=== PATIENT | male | born 1990 | race Caucasian/White ===

== ENCOUNTER 2017-02-28 16:04 | Emergency (ER) | payer MEDICAID ==
[2017-02-28] MEDS ORDERED: IBUPROFEN 600 MG TAB PO ONE (16:25)
--- NOTE | 2017-02-28 16:29 | EDPHY ---
H & P Stated Complaint: slipped hiking hyperextended l knee heard a pop HPI/ROS: CHIEF COMPLAINT: Left knee pain HISTORY OF PRESENT ILLNESS: Patient was hiking today when he was going downhill , and his left foot state a behind him when he took a step down, twisting his knee. He says he felt a sudden onset of pain in the left knee. This was primarily anteriorly over the patella. Mild pain at 1st. He continued to hike throughout the day. Throughout his hiking noticed increased pain and swelling of the knee. It is now moderate to severe pain. Unable to walk due to. He can stand but not ambulate. No injury elsewhere. No hip pain. No ankle pain. No foot pain. No numbness or tingling. He did not fall or strike his head no use of blood thinners. He is not taking any medications. PRIOR ORTHO INJURIES: None ESTABLISHED ORTHOPEDIST: none REVIEW OF SYSTEMS: Ten systems reviewed and are negative unless otherwise noted in the HPI EXAMINATION General Appearance: Alert, no distress Cardiovascular: Pulses normal throughout. Symmetric radial pulses are 2+. Brisk cap refill Neurological: A&O, sensory symmetric, strength symmetric Skin: Warm and dry, no rash. No petechia purpura. Extremities: Left lower extremity: Tenderness to palpation of the left knee on the anterior, medial and lateral joint line. There is mild effusion noted. No erythema. No lacerations or abrasions. Range of motion is intact but painful. There is no instability of the knee. There is pain with posterior drawer but no instability. No laxity of the lateral or medial collateral ligaments. Psychiatric: Mood and affect normal DIFFERENTIAL DIAGNOSES: Including but not limited to knee sprain, knee fracture, fracture dislocation, strain, hematoma, effusion MDM: 4:25 p.m. Acute left knee pain while hiking today. He has pain over the anterior and posterior joint. He does have some edema about the knee. He is neuro intact distally. He is unable to bear weight due to pain. X-ray has been ordered. Ibuprofen has been ordered as he is driving himself home. 5:00 p.m. No acute findings on x-ray as interpreted by me. There is mild effusion on clinical examination. He is neurovascular intact. There is no significant instability of the knee. No laceration or abrasion. He will be placed and an Mich wrap and provided crutches. He is to follow up with orthopedist for definitive care. Return to ER for worsening symptoms, increasing swelling. Comfortable with this plan and discharged home stable condition. ED Precautions: Worsening pain. Erythema, edema, cyanosis, pallor, paresthesia or anesthesia. SUPERVISION: This patient was independently evaluated without direct examination by the attending physician. Case was discussed with attending physician. Source: Patient Exam Limitations: No limitations - Personal History Current Tetanus/Diphtheria Vaccine: Yes - Medical/Surgical History Hx Asthma: No Hx Chronic Respiratory Disease: No Hx Diabetes: No Hx Cardiac Disease: No Hx Renal Disease: No Hx Cirrhosis: No Hx Alcoholism: No Hx HIV/AIDS: No Hx Splenectomy or Spleen Trauma: No Other PMH: DENIES - Social History Smoking Status: Current every day smoker Constitutional: Initial Vital Signs Temperature (C) 98.1 F 02/28/17 16:07 Heart Rate 92 02/28/17 16:07 Respiratory Rate 17 02/28/17 16:07 Blood Pressure 106/76 02/28/17 16:07 O2 Sat (%) 94 02/28/17 16:07 O2 Delivery Mode Room Air Allergies/Adverse Reactions: No Known Allergies Allergy (Verified 02/28/17 16:07) Home Medications: Medication Instructions Recorded Hydrocodone/APAP 5/325 [Carey 1 - 2 tab PO Q4H PRN #10 tab 02/28/17 5/325 (*)] Medical Decision Making - Data Points Medications Given: Discontinued Medications Ibuprofen (Motrin) 600 mg PO EDNOW ONE Stop: 02/28/17 16:26 Last Admin: 02/28/17 16:27 Dose: 600 mg Departure - Departure Disposition: Home, Routine, Self-Care Clinical Impression: Left knee sprain Qualifiers: Encounter type: initial encounter Involved ligament of knee: unspecified ligament Qualified Code(s): S83.92XA - Sprain of unspecified site of left knee, initial encounter Condition: Good Instructions: Knee Sprain (ED) Additional Instructions: Weightbearing as tolerated. Keep the injured extremity Mich wrap and elevated. Apply ice liberally as tolerated. Follow up with Orthopedics for definitive care. Return to ER for worsening pain or swelling, numbness or tingling, redness about the joint Referrals: Robel Terry MD [Medical Doctor] - As per Instructions Prescriptions: Hydrocodone/APAP 5/325 [Carey 5/325 (*)] 1 - 2 tab PO Q4H PRN #10 tab PRN Reason: Pain, Moderate
[2017-02-28 17:24] VITALS: BP 100/71; PULSE 87; RESP 18; TEMP 98.2; O2SAT 93
== END 2017-02-28 17:24 | disposition home or self-care (01) ==
DX: S83.92XA Sprain of unspecified site of left knee, initial encounter (principal); F17.200 Nicotine dependence, unspecified, uncomplicated; X58.XXXA Exposure to other specified factors, initial encounter; Y92.828 Other wilderness area as the place of occurrence of the external cause; Y93.01 Activity, walking, marching and hiking

== ENCOUNTER 2018-07-02 | Emergency (ER) | payer MEDICAID | END 2018-07-02 19:10 | disposition home or self-care (01) | DX: L08.9 Local infection of the skin and subcutaneous tissue, unspecified (principal) ==

== ENCOUNTER 2019-03-15 17:08 | Emergency (ER) | payer MEDICAID ==
--- NOTE | 2019-03-15 17:45 | EDPHY ---
H & P Stated Complaint: tripped and fell onto right hand 4 days ago, R hand injury Time Seen by Provider: 03/15/19 17:39 HPI/ROS: CHIEF COMPLAINT: Right hand pain HISTORY OF PRESENT ILLNESS: Patient is a 29-year-old man who slipped in the bathroom and fell on an outstretched right hand 4 days ago. He states that his hand bent forward in a flexed position. He has pain over the 4th metacarpal bone. He has moderate swelling. He denies wrist or elbow injury at the time but states that now the pain is radiating up his arm. No head or neck injury. No weakness. No abrasions or lacerations. Severity: Moderate Modifying factors: None REVIEW OF SYSTEMS: Constitutional: denies: chills, fever, recent illness, recent injury EENTM: denies: blurred vision, double vision, nose congestion Respiratory: denies: cough, shortness of breath Cardiac: denies: chest pain, irregular heart rate, lightheadedness, palpitations Gastrointestinal/Abdominal: denies: abdominal pain, diarrhea, nausea, vomiting, blood streaked stools Genitourinary: denies: dysuria, frequency, hematuria, pain Musculoskeletal: See HPI Skin: denies: lesions, rash, jaundice, bruising Neurological: denies: headache, numbness, paresthesia, tingling, dizziness, weakness Hematologic/Lymphatic: denies: blood clots, easy bleeding, easy bruising Immunologic/allergic: denies: HIV/AIDS, transplant 10 systems reviewed and negative except as noted EXAM: GENERAL: Well-appearing, well-nourished and in no acute distress. HEAD: Atraumatic, normocephalic. EYES: Pupils equal round and reactive to light, extraocular movements intact, sclera anicteric, conjunctiva are normal. ENT: TMs normal, nares patent, oropharynx clear without exudates. Moist mucous membranes. NECK: Normal range of motion, supple without lymphadenopathy or JVD. LUNGS: Breath sounds clear to auscultation bilaterally and equal. No wheezes rales or rhonchi. HEART: Regular rate and rhythm without murmurs, rubs or gallops. ABDOMEN: Soft, nontender, normoactive bowel sounds. No guarding, no rebound. No masses appreciated. BACK: No CVA tenderness, no spinal tenderness, step-offs or deformities EXTREMITIES: Minimal swelling of right hand. No pain with axial loading. No wrist tenderness. Normal range of motion and alignment. NEUROLOGICAL: Cranial nerves II through XII grossly intact. Normal speech, normal gait. 5/5 strength, normal movement in all extremities, normal sensation , normal reflexes PSYCH: Normal mood, normal affect. SKIN: Warm, dry, normal turgor, no visible rashes or lesions. Source: Patient Exam Limitations: No limitations - Personal History Current Tetanus/Diphtheria Vaccine: Unsure Current Tetanus Diphtheria and Acellular Pertussis (TDAP): Unsure - Medical/Surgical History Hx Asthma: No Hx Chronic Respiratory Disease: No Hx Diabetes: No Hx Cardiac Disease: No Hx Renal Disease: No Hx Cirrhosis: No Hx Alcoholism: No Hx HIV/AIDS: No Hx Splenectomy or Spleen Trauma: No Other PMH: DENIES. bipolar - Family History Significant Family History: No pertinent family hx - Social History Smoking Status: Never smoked Alcohol Use: None Constitutional: Initial Vital Signs Temperature (C) 37 C 03/15/19 17:10 Heart Rate 109 H 03/15/19 17:10 Respiratory Rate 11 L 03/15/19 17:10 Blood Pressure 104/73 03/15/19 17:10 O2 Sat (%) 94 03/15/19 17:10 O2 Delivery Mode Room Air Allergies/Adverse Reactions: No Known Allergies Allergy (Verified 02/28/17 16:07) Home Medications: Medication Instructions Recorded Adderall 10 MG (*) 07/02/18 Ciprofloxacin [Cipro] 500 mg PO BID #14 tab 07/02/18 [place] [facility] 07/02/18 Medical Decision Making - Diagnostics Imaging Results: Imaging Impressions Hand X-Ray 03/15/19 17:43 Impression: No acute osseous findings. Imaging: Discussed imaging studies w/ call or contact centre operator Radiologist ED Course/Re-evaluation: 6:15 p.m. we discussed the x-rays and he is reassured. I encouraged ice and elevation and rest. Differential Diagnosis: Partial list of the Differential diagnosis considered include but were not limited to; contusion, fracture and although unlikely based on the history and physical exam, I also considered nerve injury, vascular injury, elbow injury, wrist injury. I discussed these differential diagnoses and the plan with the patient as well as the usual and expected course. The patient understands that the diagnosis is provisional and that in medicine we are not always correct and that further workup is often warranted. Usual and customary warnings were given. All of the patient's questions were answered. The patient was instructed to return to the emergency department should the symptoms at all worsen or return, otherwise to followup with the physician as we discussed. Departure - Departure Disposition: Home, Routine, Self-Care Clinical Impression: Contusion of hand, right Qualifiers: Encounter type: initial encounter Qualified Code(s): S60.221A - Contusion of right hand, initial encounter Condition: Fair Instructions: Hematoma (ED) Referrals: Rodrigo Bryant MD [Primary Care Provider] - 2-3 days, if not improved
[2019-03-15 18:29] VITALS: BP 101/66
== END 2019-03-15 18:27 | disposition home or self-care (01) ==
DX: S60.221A Contusion of right hand, initial encounter (principal); W01.0XXA Fall on same level from slipping, tripping and stumbling without subsequent striking against object, initial encounter; Y92.002 Bathroom of unspecified non-institutional (private) residence as the place of occurrence of the external cause